=== PATIENT | male | born 1965 ===

== ENCOUNTER 2019-08-30 16:59 | Emergency (ER) | payer SELFPAY ==
[~2019-08-30] VITALS: Ht 170.2 cm; Wt 109.3 kg
[2019-08-30 17:11] VITALS: BP 153/105; Ht 170.2 cm; Wt 109.3 kg
== END 2019-08-30 17:22 | disposition left against medical advice (07) ==
LOC: ED 16:59
DX: Z53.21 Procedure and treatment not carried out due to patient leaving prior to being seen by health care provider (principal)